=== PATIENT | female | born 1990 | race Caucasian/White ===

== ENCOUNTER 2016-05-27 14:36 | Outpatient (CLI) | payer OTHER ==
--- NOTE | 2016-05-27 17:24 | RAD ---
RIGHT ELBOW FOUR VIEWS 05/27/16 No fracture or opaque foreign body was seen. There is no joint effusion. The bones appear normal. IMPRESSION: No significant finding. POS: HOME
== END 2016-05-27 14:37 | disposition home or self-care (01) ==
LOC: BURRAD 14:36
PROVIDERS: ATTEND Family Medicine
DX: M25.521 Pain in right elbow (principal)